=== PATIENT | female | born 1980 | race Asian ===

== ENCOUNTER 2016-11-14 08:51 | Outpatient (CLI) | payer OTHER, SELFPAY ==
--- NOTE | 2016-11-14 12:23 | ULT ---
COMPLETE PELVIC ULTRASOUND: HISTORY: A 36-year-old female with left lower quadrant pain. COMPARISON: None. TECHNIQUE: Multiplanar ray-scale sonographic imaging of the pelvis obtained with endovaginal and transabdomina l imaging. The adnexal regions are assessed with color-flow and spectral analysis. FINDINGS: Transabdominal and endovaginal imaging of the pelvis is limited on the basis of extensive bowel gas. The right ovary could not be visualized on this exam. The uterus measures approximately 7.9 x 4.1 x 5.1 cm. The endometrial stripe is estimated at 7 mm in thickness, within normal limits. The left ovary measures 2.6 x 1.1 x 2.6 cm. The left ovary could only be visualized on transabdomin al imaging, limiting assessment. Blood flow is suspected within the left ovary. Nabothian cysts ar e noted. IMPRESSION: 1. Limited pelvic ultrasound secondary to bowel gas. 2. No acute findings are seen. POS: [facility]
--- NOTE | 2016-11-14 12:48 | ULT ---
ABDOMINAL ULTRASOUND: HISTORY: Left upper quadrant pain. FINDINGS: The gallbladder has a normal sonographic appearance. No evidence of gallstones. The common duct is normal in caliber, at 3 to 4 mm. The visualized aorta and IVC appear unremarkable. The liver appears unremarkable. The spleen is unremarkable. Both kidneys are imaged and appear unr emarkable. No hydronephrosis. The technologist describes a negative Amaya sign. IMPRESSION: Unremarkable abdominal ultrasound. POS: [facility]
== END 2016-11-14 08:52 | disposition home or self-care (01) ==
LOC: NAV ULT 08:51
PROVIDERS: ATTEND Nurse Practitioner Family
DX: R10.2 Pelvic and perineal pain (principal); R10.12 Left upper quadrant pain
CPT/HCPCS: 76700; 76856